=== PATIENT | male | born 1965 | race Caucasian/White ===

== ENCOUNTER 2018-10-14 17:24 | Emergency (ER) | payer OTHER ==
[~2018-10-14] VITALS: Ht 190.5 cm; Wt 90.7 kg
[~2018-10-14 17:24] MED LIST: ALEVE220 MG PO; DOXYCYCLINE 10100 MG PO; HYDROCODONE-AP1 EAC6 PO; LIDOCAINE VISC100 M1 MM; NORCO 5-325 TA1 EACH PO; PERCOCET 10-321 EACH PO; TRAMADOL 50 MG50 MG
[2018-10-14] MEDS ORDERED: KEFLEX500 M1 PO (17:48)
[2018-10-14 18:16] VITALS: BP 150/79
== END 2018-10-14 18:18 | disposition home or self-care (01) ==
LOC: M.ERS 17:24
DX: S61.211A Laceration without foreign body of left index finger without damage to nail, initial encounter (principal); S60.413A Abrasion of left middle finger, initial encounter; Z88.0 Allergy status to penicillin; X58.XXXA Exposure to other specified factors, initial encounter; Y93.89 Activity, other specified; Y92.89 Other specified places as the place of occurrence of the external cause; Y99.8 Other external cause status